=== PATIENT | female | born 1950 | race Caucasian/White ===

== ENCOUNTER → 2020-08-31 | Outpatient (CLI) | payer MEDICARE ==
--- NOTE | 2020-08-31 12:51 | XR ---
EXAMINATION TYPE: XR chest 2V DATE OF EXAM: 08/31/2020 COMPARISON: 05/04/2016 INDICATION: Short of breath TECHNIQUE: Frontal and lateral views of the chest are obtained. FINDINGS: The heart size is normal. The pulmonary vasculature is normal. The lungs are clear. Air-filled hiatal hernia is present. IMPRESSION: 1. No acute pulmonary process. 2. Large hiatal hernia
== END | disposition home or self-care (01) ==
LOC: RADXRMAIN 12:29
PROVIDERS: ATTEND Family Medicine
DX: K44.9 Diaphragmatic hernia without obstruction or gangrene (principal)
CPT/HCPCS: 71046

== ENCOUNTER 2020-12-09 16:19 | Emergency (ER) | payer MEDICARE ==
[2020-12-09] MEDS ORDERED: ACETAMINOPHEN TAB 500 MG TAB PO STA (16:48)
[2020-12-09] MEDS ORDERED: ONDANSETRON 4 MG/2 ML VIAL IVP STA (16:49)
[2020-12-09] MEDS ORDERED: SODIUM CHLORIDE 0.9% 1,000 ML IV STA (16:49)
[2020-12-09 17:08] LABS: Basophils % (A) 1 %; Eosinophils % (A) 0 %; HCT 40.4 % (34.0-46.0); HGB 13.9 gm/dL (11.4-16.0); Lymphocytes # (A) 0.6 k/uL (1.0-4.8); Lymphocytes % (A) 18 %; MCH 32.3 pg (25.0-35.0); MCHC 34.5 g/dL (31.0-37.0); MCV 93.7 fL (80.0-100.0); Mean Platelet Volume 7.8; Monocytes # (A) 0.2 k/uL (0-1.0); Monocytes % (A) 7 %; Neutrophils # (A) 2.5 k/uL (1.3-7.7); Neutrophils % (A) 72 %; Platelet Count 134 k/uL (150-450); RBC 4.31 m/uL (3.80-5.40); RDW 12.6 % (11.5-15.5); WBC 3.4 k/uL (3.8-10.6)
[2020-12-09 17:22] LABS: Albumin 4.4 g/dL (3.5-5.0); C Reactive Protein 20.1 mg/L (<10.0); Calcium 9.8 mg/dL (8.4-10.2); Magnesium 1.4 mg/dL (1.6-2.3); Potassium 3.9 mmol/L (3.5-5.1); Total Bilirubin 0.7 mg/dL (0.2-1.3)
[2020-12-09 17:28] LABS: INR 0.9 (<1.2); Partial Thromboplastin Time 25.3 sec (22.0-30.0); Prothrombin Time 10.1 sec (9.0-12.0)
--- NOTE | 2020-12-09 18:23 | XR ---
EXAMINATION TYPE: XR chest 1V portable DATE OF EXAM: 12/09/2020 COMPARISON: 08/31/2020. HISTORY: Fever and body aches. TECHNIQUE: Single frontal view of the chest is obtained. FINDINGS: There is mild interstitial edema with superimposed perihilar and bibasilar streaky opaciti es. No pleural effusion, or pneumothorax seen. Cardiomegaly and hiatal hernia noted. Stable median st ernotomy with fracture of upper most wire. The osseous structures are intact. IMPRESSION: Mild interstitial edema with concern for superimposed infiltrates.
--- NOTE | 2020-12-09 18:29 | ED ---
General Adult HPI - General Chief complaint: Fever Stated complaint: Sent by PCP - covid symptoms Time Seen by Provider: 12/09/20 16:44 Source: patient Mode of arrival: ambulatory Limitations: no limitations - History of Present Illness Initial comments: Patient is a 70-year-old female with history of heart disease, presenting to the emergency department with complaints of cough, body aches and intermittent fevers for the past 5 days. She states her and her symptoms started approximately the same time. Her is also being seen today in the ER for similar symptoms. She is also been having some diarrhea, low appetite. She has been trying to drink water. She is also been taking Tylenol for her fevers, she did take some early this morning but no recent Tylenol. She denies any abdominal pain, no chest pain. She does admit to some mild shortness of breath. Patient did not have her Covid vaccine yet. She has no further complaints at this time. Upon arrival to the ER, she is febrile to 101.7, 95% on room air, rest of vitals normal. - Related Data Home Medications Medication Instructions Recorded Confirmed Aspirin 162 mg PO HS 02/11/14 05/04/16 Clopidogrel [Plavix] 75 mg PO DAILY 02/11/14 05/04/16 Escitalopram [Lexapro] 10 mg PO DAILY 02/11/14 05/04/16 Sucralfate [Carafate] 1 gm PO TID 02/11/14 05/04/16 atenoloL [Tenormin] 25 mg PO DAILY 02/11/14 05/04/16 Nitroglycerin Sl Tabs [Nitrostat] 0.4 mg SUBLINGUAL Q5M PRN 09/02/15 05/04/16 Atorvastatin [Lipitor] 40 mg PO DAILY 05/04/16 05/04/16 Calcium Carbonate [Calcium] 600 mg PO DAILY 05/04/16 05/04/16 Isosorbide Mononitrate ER [Imdur] 30 mg PO DAILY 05/04/16 05/04/16 Previous Rx's Medication Instructions Recorded Chlorthalidone [Hygroton] 25 mg PO DAILY #0 05/05/16 lisinopriL [Zestril] 20 mg PO HS #0 05/05/16 Dexamethasone [Decadron] 6 mg PO DAILY 5 Days #5 tablet 12/09/20 Allergies Allergy/AdvReac Type Severity Reaction Status Date / Time meperidine HCl [From Demerol] Allergy Unknown Rash/Hives Verified 12/09/20 16:26 nickel Allergy Unknown Rash/Hives Verified 12/09/20 16:26 Review of Systems ROS Statement: Those systems with pertinent positive or pertinent negative responses have been documented in the HPI. ROS Other: All systems not noted in ROS Statement are negative. Past Medical History Past Medical History: Coronary Artery Disease (CAD), Cancer, Chest Pain / Angina, GERD/Reflux, Hyperlipidemia, Hypertension, Myocardial Infarction ([place]), Osteoarthritis (OA) Additional Past Medical History / Comment(s): 09-02-15 ADMITTED FOR C/O CHEST PAIN. CLINICAL IMPRESSION UNSTABLE ANGINA. OTHER PAST HX INCLUDES: HIATAL HERNIA,DIVERTICULITIS, HX OF BLEEDING ULCERS IN STOMACH,SKIN CANCER, STATED RECENTLY HAD A STRESS TEST IN AUGUST 2015, HEART CATH IN SEPTEMBER 2015 Last Myocardial Infarction Date:: 2009 History of Any Multi-Drug Resistant Organisms: None Reported Past Surgical History: Appendectomy, Coronary Bypass/CABG, Heart Catheterization, Heart Catheterization With Stent, Orthopedic Surgery, Tonsillectomy, Tubal Ligation Additional Past Surgical History / Comment(s): CABG(TRIPLE VESSEL IN 2009), CATARACTS REMOVED HAS LENS IMPLANTS, JAW SURGERY, RT ROTATOR CUFF, OVARIAN CYSTS, ANGIOPLASTY (07/2013)RT EYE RETINA SCAR TISSUE REMOVED, SKIN CANCER REMOVED, CYST REMOVED FROM THYROID, EGD/COLONOSCOPY Past Anesthesia/Blood Transfusion Reactions: No Reported Reaction, Family History of Problems w/ Anesthesia Additional Past Anesthesia/Blood Transfusion Reaction / Comment(s): SISTER-PONV, PER PAST HX, BLOOD TRANSFUSION-NO REACTION TO IT Date of Last Stent Placement:: 2012 Past Psychological History: Anxiety Smoking Status: Never smoker Past Alcohol Use History: None Reported Past Drug Use History: None Reported - Past Family History Son(s) Family Medical History: Myocardial Infarction ([place]) Additional Family Medical History / Comment(s): AT AGE 31 [place] Father Family Medical History: Myocardial Infarction ([place]) Additional Family Medical History / Comment(s): FROM A MASSIVE NE AGE 62 Mother Family Medical History: Cancer Additional Family Medical History / Comment(s): COLON/RECTAL CANCER AND VULVA CANCER General Exam - General Exam Comments Initial Comments: GENERAL: Patient is well-developed and well-nourished. Patient is nontoxic and in no acute distress. HEAD: Atraumatic, normocephalic. EYES: Pupils equal round and reactive to light, extraocular movements intact, sclera anicteric, conjunctiva are normal. Eyelids were unremarkable. ENT: TMs normal, nares patent, oropharynx clear without exudates. Moist mucous membranes. NECK: Normal range of motion, supple without lymphadenopathy or JVD. LUNGS: Unlabored respirations. Breath sounds clear to auscultation bilaterally and equal. No wheezes rales or rhonchi. HEART: Regular rate and rhythm without murmurs, rubs or gallops. ABDOMEN: Soft, nontender, normoactive bowel sounds. No guarding, no rebound. No masses appreciated. : Deferred MUSCULOSKELETAL: Normal extremities with adequate strength and normal range of motion, no pitting or edema. No clubbing or cyanosis. NEUROLOGICAL: Patient is alert and oriented x 3. Motor and sensory are also intact. Cranial nerves II through XII grossly intact. Symmetrical smile. Normal speech, normal gait. PSYCH: Normal mood, normal affect. SKIN: Warm, Dry, normal turgor, no rashes or lesions noted. Limitations: no limitations Course Vital Signs 12/09/20 12/09/20 12/09/20 16:26 19:02 20:07 Temperature 101.7 F H 98.4 F 98.6 F Pulse Rate 70 57 L 56 L Respiratory 16 16 18 Rate Blood Pressure 106/68 106/61 115/64 O2 Sat by Pulse 95 94 L 93 L Oximetry Medical Decision Making - Medical Decision Making Patient is a 70-year-old female with history of heart disease, presenting with cold-like symptoms for the last 5 days. She's been having some nausea, body aches, fatigue and some mild shortness of breath. Patient did arrive febrile to 101.7, 95% on room air. Her exam reveals no acute findings, she is in no acute distress. Rapid Covid test is positive. Patient's labs show a normal white count, sodium is slightly low at 130, lactic acid is normal, CRP is slightly elevated at 20. Chest x-ray shows mild interstitial edema with concern for superimposed infiltrates. Patient does meet qualifications for Covid antiviral therapy. Patient did receive infusion, no acute side effects. A she did receive fluids, Zofran and Tylenol. Her vital signs remained stable. She is stable for discharge. I will continue her on steroids. She is in agreement with this plan of care. Return parameters were discussed with her and she verbalized understanding. Case discussed with Dr. Rodriguez. - Lab Data Result diagrams: 12/09/20 16:52 12/09/20 16:52 Lab Results 12/09/20 12/09/20 12/09/20 Range/Units 16:52 16:52 16:52 WBC 3.4 L (3.8-10.6) k/uL RBC 4.31 (3.80-5.40) m/uL Hgb 13.9 (11.4-16.0) gm/dL Hct 40.4 (34.0-46.0) % MCV 93.7 (80.0-100.0) fL MCH 32.3 (25.0-35.0) pg MCHC 34.5 (31.0-37.0) g/dL RDW 12.6 (11.5-15.5) % Plt Count 134 L (150-450) k/uL MPV 7.8 Neutrophils % 72 % Lymphocytes % 18 % Monocytes % 7 % Eosinophils % 0 % Basophils % 1 % Neutrophils # 2.5 (1.3-7.7) k/uL Lymphocytes # 0.6 L (1.0-4.8) k/uL Monocytes # 0.2 (0-1.0) k/uL Eosinophils # 0.0 (0-0.7) k/uL Basophils # 0.0 (0-0.2) k/uL PT 10.1 (9.0-12.0) sec INR 0.9 (<1.2) APTT 25.3 (22.0-30.0) sec Sodium 130 L (137-145) mmol/L Potassium 3.9 (3.5-5.1) mmol/L Chloride 99 (98-107) mmol/L Carbon Dioxide 20 L (22-30) mmol/L Anion Gap 11 mmol/L BUN 14 (7-17) mg/dL Creatinine 0.98 (0.52-1.04) mg/dL Est GFR (CKD-EPI)AfAm 67 (>60 ml/min/1.73 sqM) Est GFR (CKD-EPI)NonAf 58 (>60 ml/min/1.73 sqM) Glucose 105 H (74-99) mg/dL Plasma Lactic Acid Minor (0.7-2.0) mmol/L Calcium 9.8 (8.4-10.2) mg/dL Magnesium 1.4 L (1.6-2.3) mg/dL Total Bilirubin 0.7 (0.2-1.3) mg/dL AST 35 (14-36) U/L ALT 16 (4-34) U/L Alkaline Phosphatase 50 (38-126) U/L Lactate Dehydrogenase 581 (313-618) U/L C-Reactive Protein 20.1 H (<10.0) mg/L Total Protein 7.0 (6.3-8.2) g/dL Albumin 4.4 (3.5-5.0) g/dL Coronavirus (PCR) (Not Detectd) 12/09/20 12/09/20 Range/Units 16:52 16:52 WBC (3.8-10.6) k/uL RBC (3.80-5.40) m/uL Hgb (11.4-16.0) gm/dL Hct (34.0-46.0) % MCV (80.0-100.0) fL MCH (25.0-35.0) pg MCHC (31.0-37.0) g/dL RDW (11.5-15.5) % Plt Count (150-450) k/uL MPV Neutrophils % % Lymphocytes % % Monocytes % % Eosinophils % % Basophils % % Neutrophils # (1.3-7.7) k/uL Lymphocytes # (1.0-4.8) k/uL Monocytes # (0-1.0) k/uL Eosinophils # (0-0.7) k/uL Basophils # (0-0.2) k/uL PT (9.0-12.0) sec INR (<1.2) APTT (22.0-30.0) sec Sodium (137-145) mmol/L Potassium (3.5-5.1) mmol/L Chloride (98-107) mmol/L Carbon Dioxide (22-30) mmol/L Anion Gap mmol/L BUN (7-17) mg/dL Creatinine (0.52-1.04) mg/dL Est GFR (CKD-EPI)AfAm (>60 ml/min/1.73 sqM) Est GFR (CKD-EPI)NonAf (>60 ml/min/1.73 sqM) Glucose (74-99) mg/dL Plasma Lactic Acid Minor 1.0 (0.7-2.0) mmol/L Calcium (8.4-10.2) mg/dL Magnesium (1.6-2.3) mg/dL Total Bilirubin (0.2-1.3) mg/dL AST (14-36) U/L ALT (4-34) U/L Alkaline Phosphatase (38-126) U/L Lactate Dehydrogenase (313-618) U/L C-Reactive Protein (<10.0) mg/L Total Protein (6.3-8.2) g/dL Albumin (3.5-5.0) g/dL Coronavirus (PCR) Detected A (Not Detectd) Disposition Clinical Impression: Pneumonia due to COVID-19 virus Disposition: HOME SELF-CARE Condition: Stable Instructions (If sedation given, give patient instructions): Coronavirus Disease 2019 (COVID-19) Additional Instructions: Please return to the Emergency Department if symptoms worsen or any other concerns. Continue to alternate between Tylenol and Motrin for fever control. Take steroids as prescribed starting tomorrow. Follow-up with your regular doctor. Prescriptions: Dexamethasone [Decadron] 6 mg PO DAILY 5 Days #5 tablet Is patient prescribed a controlled substance at d/c from ED?: No Referrals: Alexa Fernandez MD [Primary Care Provider] - 1-2 days
[2020-12-09] MEDS ORDERED: BAMLANIVIMAB (EUA) 700 MG, ETESEVIMAB (EUA) 1,400 MG in SODIUM CHLORIDE 0.9% 50 ML IVPB ONE (18:30)
[2020-12-09] MEDS ORDERED: DEXAMETHASONE SOD PHOSPHATE 10 MG/ML 1 ML VIAL IV STA (18:58)
[2020-12-09] MEDS ORDERED: SODIUM CHLORIDE 0.9% 50 ML IVPB ONE (19:00)
[2020-12-10 03:26] VITALS: BP 115/64; PULSE 56; RESP 18; TEMP 98.6
== END 2020-12-09 20:00 | disposition home or self-care (01) ==
LOC: EC 16:19
DX: U07.1 COVID-19 (principal); J12.82 Pneumonia due to coronavirus disease 2019; E78.5 Hyperlipidemia, unspecified; F41.9 Anxiety disorder, unspecified; I10 Essential (primary) hypertension; I25.10 Atherosclerotic heart disease of native coronary artery without angina pectoris; I25.2 Old myocardial infarction; K21.9 Gastro-esophageal reflux disease without esophagitis; M19.90 Unspecified osteoarthritis, unspecified site; Z79.82 Long term (current) use of aspirin; Z85.828 Personal history of other malignant neoplasm of skin
CPT/HCPCS: 36415; 80053; 83605; 83615; 83735; 85025; 85610; 85730; 86140; 87635; 71045; 99285; 96374; 96375; 96361; J1100; J2405; Q0245

== ENCOUNTER → 2021-03-31 | Outpatient (CLI) | payer MEDICARE ==
--- NOTE | 2021-03-31 16:50 | MR ---
EXAMINATION TYPE: MR knee RT wo con DATE OF EXAM: 03/31/2021 COMPARISON: Outside radiographs 03/22/2021 HISTORY: 70-year-old female M2 5.561, right knee pain, painful kneecap, and swelling for a few years. TECHNIQUE: Multiplanar, multisequence imaging of the right knee is performed without IV contrast. FINDINGS: The ACL and PCL are intact. There is mild thickening and intermediate signal within the proximal MCL suggesting remote or low-gra de sprain. LCL complex is intact. Medial meniscus is intact. Focal moderate thickness cartilage loss along the mid weightbearing aspect medial femoral condyle measuring 9 mm AP and 5 mm wide. Mild diffuse thinning of medial compartment articular cartilage volume with mild degenerative. Lateral meniscus is intact. Degenerative spurring of the lateral compartment with a no focal cartilag e defect. There is severe loss of articular cartilage along the mid aspect of both medial and lateral patellar facets. Additional severe irregular cartilage loss along the trochlear groove. Marginal spurring in t he patellofemoral compartment. Extensor mechanism is intact. Nonspecific mild anterior soft tissue swelling. There is a [id number] erate knee joint effusion. 1.0 x 1.4 cm loose body within the medial gutter of the suprapatellar pouc h. There is mild fluid along the pes anserinus bursa. No Fonseca's cyst. Normal pulmonary artery anatomy. Mild generalized muscle atrophy. No suspicious bone marrow replaceme nt. IMPRESSION: 1. Moderate overall patellofemoral compartmental osteoarthrosis with some areas of severe cartilage l oss along the mid patella and trochlear groove. Corresponding 14 x 10 mm loose body in the medial gut ter of the knee joint. 2. Focal moderate thickness cartilage defect along the mid weightbearing aspect of the medial femoral condyle measuring 9 x 5 mm. 3. Small to moderate joint effusion. Trace pes anserinus bursal effusion/bursitis.
== END | disposition home or self-care (01) ==
LOC: RADMRIMAIN 13:05
PROVIDERS: ATTEND Orthopaedic Surgery
DX: M17.11 Unilateral primary osteoarthritis, right knee (principal)

== ENCOUNTER 2021-05-19 07:49 | Day surgery (SDC) | payer MEDICARE ==
[2021-05-16 15:31] VITALS: BMI 29.2
--- NOTE | 2021-05-18 19:24 | HP ---
HISTORY AND PHYSICAL REASON FOR ADMISSION: Surgery 05/19/2021 HISTORY OF PRESENT ILLNESS: Christina Pemberton is a 71-year-old patient seen with progressive right knee pain. We discussed options. She elected to proceed with arthroscopy. Consent was obtained. Medical clearance was provided by Dr. Fernandez. PAST MEDICAL HISTORY: Hypertension, hyperlipidemia. PAST SURGICAL HISTORY: Tubal ligation and a tonsillectomy, rotator cuff surgery, coronary artery bypass surgery. MEDICATIONS: Atenolol, atorvastatin, aspirin, hydrochlorothiazide, isosorbide. ALLERGIES: DEMEROL AND NICKEL. SOCIAL HISTORY: She denies tobacco use. PHYSICAL EVALUATION OF THE RIGHT KNEE: Range of motion is 0-125. Mild effusion. Tenderness medial joint line. Tenderness lateral joint line. Positive medial Marley's. Ligaments stable. Hip rotation without pain. Distal neurovascular exam intact. RADIOGRAPHS: Radiographs of the right knee revealed osteoarthritic changes. MRI right knee revealed a loose body and cartilage defects as well as osteoarthritic changes. IMPRESSION: 1. Internal derangement of right knee with loose body and probable osteochondral tear. 2. Hypertension. 3. Hyperlipidemia. PLAN: Right knee arthroscopy with chondroplasty, removal of loose body and debridement. Surgery scheduled 05/19/2021. MMODL / IJN: [id number] /
[~2021-05-19 07:49] MED LIST: DEXAMETHASONE SOD PHOSPHATE 4 MG/ML 1 ML VIAL IV ONE; HYDROmorphone 0.5 MG/0.5 ML SYRINGE IVP PRN; LACTATED RINGERS 1,000 ML IV SCH; ONDANSETRON 4 MG/2 ML VIAL IVP ONE
[2021-05-19 08:41] LABS: Glucose,Whole Blood 92 mg/dL (75-99)
[2021-05-19] MEDS ORDERED: fentaNYL (PF) 50 MCG/ML 2 ML AMP ONE (09:20)
[2021-05-19] MEDS ORDERED: LIDOCAINE 1% INJ 10MG/ML (20 ML MDV) ONE (09:20)
[2021-05-19] MEDS ORDERED: SUCCINYLCHOLINE CHLORIDE 100 MG/5 ML SYR IV ONE (09:20)
[2021-05-19] MEDS ORDERED: KETOROLAC 15 MG/ML 1 ML VIAL ONE (09:20)
[2021-05-19] MEDS ORDERED: PROPOFOL 10 MG/ML 20 ML VIAL IV ONE (09:20)
[2021-05-19] MEDS ORDERED: MIDAZOLAM 2 MG/2 ML VIAL ONE (09:20)
[2021-05-19] MEDS ORDERED: BUPIVACAINE (PF) 0.25% 30 ML VIAL INTRAARTIC ONE (09:48)
--- NOTE | 2021-05-19 10:07 | P.OP ---
Date of Procedure: 05/19/21 Preoperative Diagnosis: Internal derangement right knee Postoperative Diagnosis: 1. Tear lateral meniscus right knee 2. 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 Reactive synovitis medial, lateral and suprapatellar compartments right knee Procedure(s) Performed: 1. Arthroscopic partial lateral meniscectomy right knee 2. Arthroscopic partial synovectomy medial, lateral and suprapatellar compartments right knee Anesthesia: DARLINA, local Surgeon: Graham Trevino Estimated Blood Loss (ml): 7 Pathology: none sent Condition: stable Disposition: PACU Indications for Procedure: 71-year-old patient seen with progressive right knee pain. After treatment opti ons were discussed, she elected to proceed with arthroscopy. Operative Findings: see description of procedure Description of Procedure: Patient was taken to the operative suite. Patient underwent a general anesthetic by the department of anesthesia. Patient was given preoperative antibiotics. The lower extremity was placed in a well-padded arthroscopic leg moran. The right leg was prepped and draped in the normal sterile orthopedic fashion. A lateral parapatellar and suprapatellar incision was made. Trochars were inserted. Arthroscopy was initiated. Suprapatellar pouch revealed diffuse thick reactive synovitis. The patellofemoral joint appeared to articulate congruently. There was grade 4 chondromalacia of both the patella and femoral sulcus with exposed bone on both sides([id number] arthritis). The scope was guided into the medial gutter. No loose bodies or plica were identified. The scope was then guided into the medial compartment. A medial parapatellar incision was made. Trocar inserted followed by probe. The medial meniscus was probed and found to be stable. There were grade 3 chondromalacia changes of the medial compartment with no osteochondral tears present. There was thick reactive synovitis anteriorly. I introduced a motorized shaver and performed a partial synovectomy. Shaver was removed. There was good decompression of the synovitis. Scope and probe were then guided into the intercondylar notch. Cruciates were identified, probed and found to be stable. The scope and probe were then guided into lateral compartment. There were radial tears in the posterior horn and midbody areas lateral meniscus. There were grade 1/2 chondromalacia changes lateral compartment with no tears. There was thick reactive synovitis anteriorly. I performed a partial lateral meniscectomy getting down to stable meniscal tissue. I performed a partial synovectomy decompressing the thick reactive synovitis. Shaver was removed. The residual meniscus was stable. There was good decompression of the synovitis. The scope was in guided back into the suprapatellar compartment. I introduced a motorized shaver into the suprapatellar compartment. I performed a partial synovectomy. Shaver was removed. There was good decompression of the synovitis. I now took one more look on the entire knee, no residual debris. Instruments were now removed from the joint. The joint was infiltrated with .25% Marcaine. Steri- Strips were applied to the portal sites. Sterile dressings were applied. The patient was placed into a TELLY hose. No tourniquet was utilized. The patient was awakened, transferred to a bed and taken to recovery stable satisfactory condition.
[2021-05-19 10:17] VITALS: TEMP 96.8
[2021-05-19 10:49] VITALS: RESP 18
[2021-05-19 11:21] VITALS: BP 124/78; PULSE 78
== END 2021-05-19 11:21 | disposition home or self-care (01) ==
LOC: OR 07:49
PROVIDERS: ATTEND Orthopaedic Surgery
DX: M23.200 Derangement of unspecified lateral meniscus due to old tear or injury, right knee (principal); M94.261 Chondromalacia, right knee; M65.861 Other synovitis and tenosynovitis, right lower leg; M23.41 Loose body in knee, right knee; M17.11 Unilateral primary osteoarthritis, right knee; I25.10 Atherosclerotic heart disease of native coronary artery without angina pectoris; I25.2 Old myocardial infarction; K21.9 Gastro-esophageal reflux disease without esophagitis; K44.9 Diaphragmatic hernia without obstruction or gangrene; E78.5 Hyperlipidemia, unspecified; I10 Essential (primary) hypertension; Z79.82 Long term (current) use of aspirin; Z79.899 Other long term (current) drug therapy; Z95.1 Presence of aortocoronary bypass graft; Z98.890 Other specified postprocedural states; Z79.02 Long term (current) use of antithrombotics/antiplatelets
CPT/HCPCS: 29881; 29876; J2250; J1100; J0690; J2405; J2001; J3010; J1885; J0330; J2704

== ENCOUNTER → 2021-08-09 | Outpatient (CLI) | payer MEDICARE ==
--- NOTE | 2021-08-10 08:07 | XR ---
EXAMINATION TYPE: XR thoracic spine 2V DATE OF EXAM: 08/09/2021 COMPARISON: None HISTORY: Fall, back pain TECHNIQUE: 3 views thoracic spine FINDINGS: There are 12 thoracic type vertebral bodies. The pedicles are intact. Disc heights are pres erved. Vertebral body heights are preserved. Alignment appears normal. Spondylosis within the thoraci c spine. Note is made of a large hiatal hernia. IMPRESSION: 1. Mild degenerative changes. 2. No suspicious acute thoracic abnormality. 3. Large hernia
--- NOTE | 2021-08-10 08:13 | XR ---
EXAMINATION TYPE: XR ribs LT DATE OF EXAM: 08/09/2021 COMPARISON: None HISTORY: Fall, rib pain TECHNIQUE: 2 view left RIBS FINDINGS: No pneumothorax is evident on these images. Note is made of a large hiatal hernia with air- fluid level. On the oblique views there are subtle anterior left rib fractures of the sixth fifth ribs. IMPRESSION: 1. Suspected anterior distal left fifth and sixth rib fractures.
--- NOTE | 2021-08-10 08:21 | XR ---
EXAMINATION TYPE: XR chest 2V DATE OF EXAM: 08/09/2021 COMPARISON: 08/09/2021 INDICATION: Fall pain TECHNIQUE: Single frontal view of the chest is obtained. FINDINGS: The heart size is normal. The pulmonary vasculature is normal. The lungs are clear. No pneumothorax is evident. Large hiatal hernia is present. Patient's known anterior left fifth and s ixth rib fractures are poorly visualized on this exam. IMPRESSION: 1. Large hiatal hernia. 2. No acute pulmonary process. 3. Patient's rib fractures not identified on this examination, see left rib exam same date.
== END | disposition home or self-care (01) ==
LOC: RADXRMAIN 16:58
PROVIDERS: ATTEND Family Medicine
DX: S29.9XXA Unspecified injury of thorax, initial encounter (principal); M47.814 Spondylosis without myelopathy or radiculopathy, thoracic region; W19.XXXA Unspecified fall, initial encounter
CPT/HCPCS: 71046; 72070

== ENCOUNTER → 2021-08-10 | Outpatient (CLI) | payer MEDICARE ==
[2021-08-10 10:59] LABS: HCT 40.1 % (37.2-46.3); HGB 12.7 g/dL (12.0-15.0); MCH 31.4 pg (27.0-32.0); MCHC 31.7 g/dL (32.0-37.0); MCV 99.3 fL (80.0-97.0); Platelet Count 225 X 10*3/uL (140-440); RBC 4.04 X 10*6/uL (4.10-5.20); RDW 12.1 % (11.5-14.5); WBC 3.85 X 10*3/uL (4.50-10.00)
[2021-08-10 13:09] LABS: Albumin 4.4 g/dL (3.8-4.9); Albumin/Globulin Ratio 2.15 (1.60-3.17); Anion Gap 12.1 mmol/L (10.00-18.00); BUN/Creat Ratio 25.44 Ratio (12.00-20.00); Blood Urea Nitrogen 21.8 mg/dL (9.0-27.0); Calcium 10.1 mg/dL (8.7-10.3); Globulin 2.1 g/dL (1.6-3.3); Non-African American GFR(CKD) 67.3 (60.0-200.0); Total Bilirubin 0.5 mg/dL (0.30-1.20); Total Protein 6.5 g/dL (6.2-8.2)
== END | disposition home or self-care (01) ==
LOC: LABWHC1 08:09
PROVIDERS: ATTEND Family Medicine
DX: R73.03 Prediabetes (principal); R06.02 Shortness of breath
CPT/HCPCS: 36415; 80053; 83036; 85027

== ENCOUNTER 2022-03-14 09:20 | Day surgery (SDC) | payer MEDICARE ==
[2022-03-09 15:53] VITALS: BMI 27.4
[~2022-03-14 09:20] MED LIST changes: -DEXAMETHASONE SOD PHOSPHATE 4 MG/ML 1 ML VIAL IV ONE; -HYDROmorphone 0.5 MG/0.5 ML SYRINGE IVP PRN; +LIDOCAINE 1% (10MG/ML) FOR IV START INTRADERMA PRN; -ONDANSETRON 4 MG/2 ML VIAL IVP ONE
[2022-03-14 09:56] VITALS: TEMP 97.2
[2022-03-14 10:07] LABS: Glucose,Whole Blood 105 mg/dL (70-110)
[2022-03-14] MEDS ORDERED: PROPOFOL 10 MG/ML 20 ML VIAL IV ONE (10:11)
--- NOTE | 2022-03-14 10:13 | P.GSHP ---
History of Present Illness H&P Date: 03/14/22 Chief Complaint: Colon cancer screening 71-year-old female here for colonoscopy. Last colonoscopy 8 years ago. Family history of colon cancer in her mother. No bowel complaints. Past Medical History Past Medical History: Cancer, Chest Pain / Angina, GERD/Reflux, Hyperlipidemia, Hypertension, Myocardial Infarction ([place]), Osteoarthritis (OA) Additional Past Medical History / Comment(s): Hiatal hernia, diverticulitis, hx bleeding ulcers in stomach, skin cancer. Last Myocardial Infarction Date:: 2009 History of Any Multi-Drug Resistant Organisms: None Reported Past Surgical History: Appendectomy, Coronary Bypass/CABG, Heart Catheterization, Orthopedic Surgery, Tonsillectomy, Tubal Ligation Additional Past Surgical History / Comment(s): CABG(TRIPLE VESSEL IN 2009), TERESA CATARACTS REMOVED/LENS IMPLANTS, JAW SURGERY, RT ROTATOR CUFF, SURGERY OVARIAN CYSTS, ANGIOPLASTY (07/2013), RT EYE RETINA SCAR TISSUE REMOVED, SKIN CANCER REMOVED, CYST REMOVED FROM THYROID, EGD/COLONOSCOPY, Past Anesthesia/Blood Transfusion Reactions: Family History of Problems w/ Anesthesia Additional Past Anesthesia/Blood Transfusion Reaction / Comment(s): SISTER - PONV., PT HAD ONE BLOOD TRANSFUSION, NO REACTION TO IT Date of Last Stent Placement:: 2012 Smoking Status: Never smoker - Past Family History Son(s) Family Medical History: Myocardial Infarction ([place]) Additional Family Medical History / Comment(s): AT AGE 31 [place] Sister(s) Family Medical History: Cancer Additional Family Medical History / Comment(s): brain cancer, Brother(s) Family Medical History: Cancer Additional Family Medical History / Comment(s): 1 with Pancreas cancer; 1 with lymphoma/brain cancer Father Family Medical History: Myocardial Infarction ([place]) Additional Family Medical History / Comment(s): FROM A MASSIVE DE AGE 62 Mother Family Medical History: Cancer, Deep Vein Thrombosis (DVT) Additional Family Medical History / Comment(s): COLON/RECTAL CANCER AND VULVA CANCER Medications and Allergies Home Medications Medication Instructions Recorded Confirmed Type Aspirin 162 mg PO DAILY 02/11/14 03/09/22 History Clopidogrel [Plavix] 75 mg PO DAILY 02/11/14 03/09/22 History Escitalopram [Lexapro] 10 mg PO DAILY 02/11/14 03/09/22 History Sucralfate [Carafate] 1 gm PO TID 02/11/14 03/09/22 History Nitroglycerin Sl Tabs [Nitrostat] 0.4 mg SUBLINGUAL Q5M PRN 09/02/15 03/09/22 History Atorvastatin [Lipitor] 40 mg PO HS 05/04/16 03/09/22 History Isosorbide Mononitrate ER [Imdur] 30 mg PO DAILY 05/04/16 03/09/22 History Fish Oil/Dha/Epa [Fish Oil 1,200 1 each PO DAILY 05/16/21 03/09/22 History mg Fish Oil] lisinopriL [Zestril] 20 mg PO DAILY 05/16/21 03/09/22 History Calcium Carbonate [Calcium] 1,200 mg PO DAILY 03/09/22 03/09/22 History atenoloL [Tenormin] 12.5 mg PO HS 03/09/22 03/09/22 History hydroCHLOROthiazide [Hydrodiuril] 25 mg PO DAILY 03/09/22 03/09/22 History Allergies Allergy/AdvReac Type Severity Reaction Status Date / Time meperidine HCl [From Demerol] Allergy Unknown Rash/Hives Verified 03/14/22 09:49 nickel Allergy Unknown Rash/Hives Verified 03/14/22 09:49 Surgical - Exam Vital Signs Temp Pulse Resp BP Pulse Ox 97.2 F L 78 16 150/74 95 03/14/22 09:55 03/14/22 09:55 03/14/22 09:55 03/14/22 09:55 03/14/22 09:55 Physical exam: General: Well-developed, well-nourished HEENT: Normocephalic, sclerae nonicteric Abdomen: Nontender, nondistended Extremities: No edema Neuro: Alert and oriented Assessment and Plan (1) Colon cancer screening Narrative/Plan: Will proceed with colonoscopy at this time Current Visit: No Status: Acute Code(s): Z12.11 - ENCOUNTER FOR SCREENING FOR MALIGNANT NEOPLASM OF COLON SNOMED Code(s): 838174910
--- NOTE | 2022-03-14 10:29 | P.PCN ---
Date of Procedure: 03/14/22 Procedure(s) Performed: PREOPERATIVE DIAGNOSIS: Colon cancer screening, family history of colon cancer POSTOPERATIVE DIAGNOSIS: Poor prep, diverticulosis PROCEDURE: Colonoscopy ANESTHESIA: MAC SURGEON: Saman Burr M.D. SPECIMENS: None ENDOSCOPIC PROCEDURE: The patient was placed on the endoscopy table in the left decubitus position. The Olympus colonoscope was inserted into the anus and passed under direct visualization to the base of the cecum. The appendiceal orifice was visualized. From that point the scope was slowly withdrawn inspecting all surfaces carefully. There were no neoplastic inflammatory or polypoid lesions throughout the cecum, ascending, transverse, descending, sigmoid and rectum. There was mild left-sided diverticulosis noted. The patient's prep was poor and the mucosal surfaces were not well visualized. Digital rectal examination was normal. The patient was taken to the recovery room in stable condition per anesthesia guidelines. RECOMMENDATIONS: We'll discuss endoscopic findings with the patient. Smaller polyps could have been missed. Recommend repeat colonoscopy 3-5 years given the patient's poor prep. Patient should perform 2 day bowel prep at that time.
[2022-03-14 10:52] VITALS: BP 101/63; PULSE 65; RESP 18
== END 2022-03-14 11:22 ==
LOC: ORWHC2ENDO 09:20
PROVIDERS: ATTEND Surgery
DX: Z12.11 Encounter for screening for malignant neoplasm of colon (principal); Z80.0 Family history of malignant neoplasm of digestive organs; K21.9 Gastro-esophageal reflux disease without esophagitis; E78.5 Hyperlipidemia, unspecified; I10 Essential (primary) hypertension; M19.90 Unspecified osteoarthritis, unspecified site; I25.2 Old myocardial infarction; I25.119 Atherosclerotic heart disease of native coronary artery with unspecified angina pectoris; Z87.19 Personal history of other diseases of the digestive system; Z85.828 Personal history of other malignant neoplasm of skin; Z90.49 Acquired absence of other specified parts of digestive tract; Z95.1 Presence of aortocoronary bypass graft; Z80.7 Family history of other malignant neoplasms of lymphoid, hematopoietic and related tissues; Z80.8 Family history of malignant neoplasm of other organs or systems; Z80.49 Family history of malignant neoplasm of other genital organs; Z82.49 Family history of ischemic heart disease and other diseases of the circulatory system; Z79.82 Long term (current) use of aspirin; Z79.01 Long term (current) use of anticoagulants; Z79.899 Other long term (current) drug therapy; Z88.5 Allergy status to narcotic agent; Z91.09 Other allergy status, other than to drugs and biological substances
CPT/HCPCS: J2704; G0105

== ENCOUNTER 2022-05-15 12:53 | Day surgery (SDC) | payer MEDICARE ==
[2022-05-12 09:04] VITALS: BMI 28.9
--- NOTE | 2022-05-14 22:15 | HP ---
HISTORY AND PHYSICAL DATE OF SURGERY: 05/15/2022 HISTORY OF PRESENT ILLNESS: Christina Pemberton is a 72-year-old patient seen with progressive right knee pain. We discussed options for treatment. She elected to proceed with a right total knee arthroplasty. Consent regarding the procedure was obtained. Medical and cardiac clearances were obtained. PAST MEDICAL HISTORY: Hypertension. PAST SURGICAL HISTORY: Rotator cuff repair, coronary artery bypass surgery, tonsillectomy, tubal ligation. DAILY MEDICATIONS: 1. Atenolol. 2. Hydrochlorothiazide. 3. Isosorbide. 4. Lisinopril. ALLERGIES: Demerol. SOCIAL HISTORY: She denies tobacco use. PHYSICAL EVALUATION OF THE RIGHT KNEE: Her range of motion is 0 to 130. Mild effusion. Tenderness, medial joint line. Crepitus, medial patellofemoral compartments with range of motion. Pain with patellofemoral compression. Ligaments stable. Hip rotation without pain. Distal neurovascular exam is intact. Radiographs of the right knee reveal severe osteoarthritic changes. IMPRESSION: 1. Right knee osteoarthritis. 2. Nickel allergy. 3. Hypertension. 4. Hyperlipidemia. PLAN: Right total knee arthroplasty. MMODL / IJN: [id number] /
[~2022-05-15 12:53] MED LIST changes: +ACETAMINOPHEN TAB 500 MG TAB PO PRN; +DEXAMETHASONE SOD PHOSPHATE 4 MG/ML 1 ML VIAL IV ONE; +HYDROmorphone 0.5 MG/0.5 ML SYRINGE IVP PRN; -LIDOCAINE 1% (10MG/ML) FOR IV START INTRADERMA PRN; +MELOXICAM 7.5 MG TAB PO PRN; +ONDANSETRON 4 MG/2 ML VIAL IVP ONE; +TRANEXAMIC ACID IN NACL,ISO-OS 1,000 MG in SALINE 1 100ML.BAG IVPB PRN
[2022-05-15] MEDS ORDERED: LIDOCAINE 1% (10MG/ML) FOR IV START INTRADERMA ONE (13:36)
[2022-05-15] MEDS ORDERED: MIDAZOLAM 2 MG/2 ML VIAL IV ONE (13:39)
[2022-05-15 13:56] LABS: Glucose,Whole Blood 102 mg/dL (70-110)
--- NOTE | 2022-05-15 14:04 | P.ANPRN ---
Procedure Note - Anesthesia - Nerve Block Performed Right Adductor Canal Infusion Time Out Performed: Yes (1339) Date of Procedure: 05/15/22 Procedure Start Time: 13:39 Procedure Stop Time: 13:49 Location of Patient: PreOp Indication: Acute Post-Operative Pain, Dx/Pain Location (Right knee), Requested by Surgeon Specifically requested for management of pain by DrFabi: Graham Trevino Sedation Type: Sedate with meaningful contact maintained Preparation: Sterile Prep, Sterile Dressing Position: Supine Catheter: Indwelling Needle Types: Pajunk Needle Gauge: 18 Ultrasound used to visualize needle placement: Yes Ultrasound used to observe medication spread: Yes Injectate: 0.5% Ropivacaine (see comment for volume) (15 cc) Blood Aspirated: Yes Pain Paresthesia on Injection Noted: Yes Resistance on Injection: Normal Image Stored and Saved: Yes Events: Uneventful and Well Tolerated Right iPack Single Time Out Performed: Yes Date of Procedure: 05/15/22 Location of Patient: PreOp Indication: Acute Post-Operative Pain, Dx/Pain Location (Right knee), Requested by Surgeon Specifically requested for management of pain by DrFabi: Graham Trevino Sedation Type: Sedate with meaningful contact maintained Preparation: Sterile Prep Position: Left Lateral Catheter: None Needle Types: Pajunk Needle Gauge: 21 Ultrasound used to visualize needle placement: Yes Ultrasound used to observe medication spread: Yes Injectate: 0.5% Ropivacaine (see comment for volume) (15 cc) Blood Aspirated: No Pain Paresthesia on Injection Noted: No Resistance on Injection: Normal Image Stored and Saved: Yes Events: Uneventful and Well Tolerated
[2022-05-15] MEDS ORDERED: ROPIVACAINE 0.2%-NS ON-Q PUMP 1,090 MG, EMPTY PAIN BALL 1 EACH MISCELLANE PRN (14:09)
[2022-05-15] MEDS ORDERED: LACTATED RINGERS 1,000 ML IV ONE (15:44)
[2022-05-15] MEDS ORDERED: ceFAZolin 1,000 MG in SODIUM CHLORIDE 0.9% 1,000 ML IRRIGATION ONE (16:14)
[2022-05-15] MEDS ORDERED: HYDROcodone/APAP 5-325MG 1 EACH TAB PO PRN (17:07)
[2022-05-15] MEDS ORDERED: NALOXONE 0.4 MG/ML 1 ML VIAL IV PRN (17:07)
[2022-05-15] MEDS ORDERED: HYDROmorphone 0.5 MG/0.5 ML SYRINGE IVP PRN ×3 (17:07)
[2022-05-15] MEDS ORDERED: ONDANSETRON 4 MG/2 ML VIAL IVP PRN (17:07)
--- NOTE | 2022-05-15 17:07 | P.OP ---
Date of Procedure: 05/15/22 Preoperative Diagnosis: Right knee osteoarthritis Postoperative Diagnosis: Right knee osteoarthritis Procedure(s) Performed: Right total knee arthroplasty Implants: 1. Aesculap size 4 narrow right cruciate cemented femur 2. Aesculap size T2 cemented tibial baseplate 3. Aesculap polyethylene tibial insert size 2+ 14 mm 4. Aesculap size P2 all polyethylene cemented patella Anesthesia: regional (Adductor canal catheter, Ipack block), spinal Surgeon: Graham Trevino Cafeteria Associate #1: Zach Nice Estimated Blood Loss (ml): 50 Pathology: other (Bone) Condition: stable Disposition: PACU Indications for Procedure: 72-year-old patient seen with symptomatic right knee osteoarthritis. After having treatment options discussed, she elected to proceed with total knee arthroplasty. Operative Findings: See description of procedure Description of Procedure: Patient was taken to the operative suite after having an adductor canal catheter placed by the department of anesthesia as well as an Ipack block for postoperative pain management. Patient underwent a spinal anesthetic by the department of anesthesia. Patient was given preoperative IV intake antibiotics and TXA. A well-padded tourniquet was placed about the right lower extremity. The lower extremity was then prepped and draped in the normal sterile orthopedic fashion. The extremity was elevated, a tourniquet was insufflated to 300. A standard anterior incision was made sharply through skin. Dissection was taken down through the subcutaneous soft tissues down to the extensor mechanism. A medial arthrotomy was performed, patella was everted and knee was flexed. There was advanced osteoarthritis noted. I introduced my distal intramedullary femoral drill. I then introduced the distal femoral cutting jig. Stefan MARCELO secured the cutting jig with 2 pins. I held retractors in position while Stefan MARCELO performed the distal femoral resection through the guide area we now removed her distal femoral cutting guide. We now placed our 4-in-1 femoral cutting block and positioned and it was secured with 2 pins by Stefan MARCELO while I held the block in position. The distal femoral finishing was now completed. A proximal tibial cutting guide was positioned. I held the guide in the appropriate position with both hands well Stefan MARCELO inserted stabilizing pins into the guide. Proximal tibial cut was made. We now placed a trial femoral component into position, along with an appropriate size tibial tray and insert. We now took the knee through range of motion and had full ex tension good flexion and good overall soft tissue balance noted. The patella was everted and stabilized with 2 towel clips held by Stefan MARCELO while I performed a flush with patellar quad tendon utilizing a fresh sawblade. We templated the patella, appropriate drill holes were made. An appropriate trial patella was positioned, knee was taken through full range of motion with the patella tracking very nicely. The trial patella was removed. Drill holes were made through the femoral component. All trial components were removed after marking off the appropriate rotation of the tibia. Retractors were now positioned along the proximal tibia. An appropriate keel punch was made with the appropriate size tibial guide by myself on Stefan MARCELO assisted by holding retractors. At this point appropriate size implants were chosen and opened. The joint was irrigated copiously with pulse lavage mechanical irrigation. The posterior capsule was infiltrated with local analgesic. The wound was irrigated with pulse lavage mechanical irrigation. We mixed antibiotic methylmethacrylate. We placed the knee into flexion. We placed multiple retractors assisted by Stefan MARCELO to expose the proximal tibia. Once the methyl methacrylate was ready, the tibial component was cemented into place removing any excess methylmethacrylate form by both myself and Stefan MARCELO. The femoral component was cemented into place removing the removing any excess methylmethacrylate performed by both myself and Stefan MARCELO. We then inserted the appropriate size polyethylene tibial insert. We made sure that it was locked into position. We took the knee into full extension, and then back in a flexion making sure we had removed any excess methylmethacrylate. The patellar component was then cemented down and secured with clamp. Excess methylmethacrylate removed. We kept the knee in full extension, patellar clamp in position until methylmethacrylate had hardened. Once it had hardened the patellar clamp was removed. The knee was taken through full range of motion. The patella tracked nicely. There was good soft tissue balancing. The tourniquet was now released. Additional hemostasis was achieved via electrocautery. A second gram of TXA was given. The wound again was irrigated with pulse lavage mechanical irrigation. The superficial soft tissues were infiltrated local analgesic. The extensor mechanism was repaired with Ethibond suture. We checked the repair with range of motion and it was stable. The subcutaneous soft tissues were repaired with Vicryl in layers. The skin was approximated with pernio/Dermabond. Sterile dressings were applied followed by loose web roll and [place] bandage. The patient was transferred to a bed, and taken to recovery in stable and satisfactory condition. Stefan MARCELO assisted with this complex procedure.
[2022-05-15] MEDS ORDERED: SODIUM CHLORIDE 0.9% 1,000 ML IV SCH (17:15)
--- NOTE | 2022-05-15 17:58 | XR ---
EXAMINATION TYPE: XR knee limited RT DATE OF EXAM: 05/15/2022 COMPARISON: NONE HISTORY: Postop TECHNIQUE: 2 views FINDINGS: There is right knee prosthesis. Components are anatomically positioned. IMPRESSION: No complicating process seen.
[2022-05-15] MEDS ORDERED: SENNOSIDES-DOCUSATE SODIUM 1 EACH TAB PO SCH (21:00)
--- NOTE | 2022-05-15 23:32 | P.CONS ---
History of Present Illness - Reason for Consult Consult date: 05/15/22 - History of Present Illness The patient is a 72-year-old female with a PMH of hypertension, hyperlipidemia, coronary artery disease who was admitted for an elective right knee replacement. The patient underwent the procedure earlier today with no immediate postoperative consultations noted. She was seen postsurgically on the [facility] unit. She reported excellent control of her pain at the time of interview, rated at a 1 out of 10 at the right knee. She denied any additional complaints. She denied experiencing chest discomfort, shortness of breath, fever, chills, cough, nausea, vomiting, abdominal pain, diarrhea. Reports compliance with all her medications at home. Review of systems: Pertinent positives and negatives as discussed in HPI, a complete review of systems was performed and all other systems are negative. Physical examination: General: non toxic, no distress, appears at stated age, obese Derm: no unusual rashes/lesions, warm Head: atraumatic, normocephalic, symmetric Eyes: EOMI, no lid lag, anicteric sclera, pupils equal round reactive to light ENT: Nose and ears atraumatic Neck: No cervical lymphadenopathy, trachea midline, supple Mouth: no lip lesion, mucus membranes moist Cardiovascular: S1S2 reg, no murmur, positive dorsalis pedis pulse bilateral, no edema Lungs: CTA bilateral, no rhonchi, no rales, no accessory muscle use Abdominal: soft, nontender to palpation, no guarding Ext: muscle strength 5 out of 5 in all extremities grossly except right lower extremity due to pain, right knee [place] bandage in place, no gross muscle atrophy, no contractures, Neuro: CN II-XI grossly intact, no gross focal neuro deficits Psych: Alert, oriented, appropriate affect Assessment/plan Chronic conditions: HTN, HLD, CAD -C/w home meds S/p R knee total replacement -Defer management including pain control and DVT prophylaxis to the primary surgery service Past Medical History Past Medical History: Coronary Artery Disease (CAD), Cancer, Chest Pain / Angina, Heart Failure, GERD/Reflux, Hyperlipidemia, Hypertension, Myocardial Infarction (VT), Osteoarthritis (OA) Additional Past Medical History / Comment(s): fell last week has bruising under rt eye and rt knee,hx borderline diabetes,Hiatal hernia, diverticulitis, hx bleeding ulcers in stomach, skin cancer Last Myocardial Infarction Date:: 2009 History of Any Multi-Drug Resistant Organisms: None Reported Past Surgical History: Appendectomy, Coronary Bypass/CABG, Heart Catheterization, Heart Catheterization With Stent, Orthopedic Surgery, Tonsillectomy, Tubal Ligation Additional Past Surgical History / Comment(s): CABG(TRIPLE VESSEL IN 2009), CATARACTS REMOVED/LENS IMPLANTS, JAW SURGERY-no problems oping and closing mouth), RT ROTATOR CUFF, OVARIAN CYSTS, ANGIOPLASTY (07/2013) RT EYE RETINA SCAR TISSUE REMOVED, SKIN CANCER REMOVED, CYST REMOVED FROM THYROID, EGD/COLONOSCOPY Past Anesthesia/Blood Transfusion Reactions: No Reported Reaction, Family History of Problems w/ Anesthesia Additional Past Anesthesia/Blood Transfusion Reaction / Comm: Has had generalized muscle cramps post anesthesia in past,SISTER - PONV. BLOOD TRANSFUSION, NO REACTION TO IT Date of Last Stent Placement:: 2012 Past Psychological History: Anxiety Smoking Status: Never smoker Past Alcohol Use History: Rare Past Drug Use History: None Reported - Past Family History Son(s) Family Medical History: Myocardial Infarction (VT) Additional Family Medical History / Comment(s): AT AGE 31 VT Sister(s) Family Medical History: Cancer Additional Family Medical History / Comment(s): brain cancer, Brother(s) Family Medical History: Cancer Additional Family Medical History / Comment(s): 1 with Pancreas cancer; 1 with lymphoma/brain cancer Father Family Medical History: Myocardial Infarction (VT) Additional Family Medical History / Comment(s): FROM A MASSIVE VT AGE 62 Mother Family Medical History: Cancer, Deep Vein Thrombosis (DVT) Additional Family Medical History / Comment(s): COLON/RECTAL CANCER AND VULVA CANCER Medications and Allergies Home Medications Medication Instructions Recorded Confirmed Type Aspirin 162 mg PO DAILY 02/11/14 05/12/22 History Clopidogrel [Plavix] 75 mg PO DAILY 02/11/14 05/12/22 History Escitalopram [Lexapro] 10 mg PO QAM 02/11/14 05/12/22 History Sucralfate [Carafate] 1 gm PO TID 02/11/14 05/12/22 History Nitroglycerin Sl Tabs [Nitrostat] 0.4 mg SUBLINGUAL Q5M PRN 09/02/15 05/12/22 History Atorvastatin [Lipitor] 40 mg PO HS 05/04/16 05/12/22 History Isosorbide Mononitrate ER [Imdur] 30 mg PO QAM 05/04/16 05/12/22 History lisinopriL [Zestril] 20 mg PO QAM 05/16/21 05/12/22 History Calcium Carbonate [Calcium] 600 mg PO BID 03/09/22 05/12/22 History atenoloL [Tenormin] 12.5 mg PO HS 03/09/22 05/12/22 History hydroCHLOROthiazide [Hydrodiuril] 25 mg PO QAM 03/09/22 05/12/22 History Allergies Allergy/AdvReac Type Severity Reaction Status Date / Time meperidine HCl [From Demerol] Allergy Unknown Rash/Hives Verified 05/12/22 08:38 nickel Allergy Unknown Rash/Hives Verified 05/12/22 08:38 Physical Exam Vitals: Vital Signs Temp Pulse Pulse Pulse Resp BP BP 05/15/22 19:11 62 138/78 05/15/22 18:56 65 123/75 05/15/22 18:41 58 L 137/81 05/15/22 18:26 67 146/80 05/15/22 18:14 97.5 F L 52 L 20 126/67 05/15/22 18:11 57 L 126/67 05/15/22 17:51 54 L 16 121/63 05/15/22 17:36 49 L 16 120/66 05/15/22 17:21 97.0 F L 62 16 123/67 05/15/22 14:02 50 L 16 136/71 05/15/22 13:25 97.9 F 55 L 20 159/72 Pulse Ox 05/15/22 19:11 98 05/15/22 18:56 96 05/15/22 18:41 98 05/15/22 18:26 97 05/15/22 18:14 95 05/15/22 18:11 94 L 05/15/22 17:51 98 05/15/22 17:36 96 05/15/22 17:21 92 L 05/15/22 14:02 96 05/15/22 13:25 97 Intake and Output 05/15/22 05/15/22 05/15/22 06:59 14:59 22:59 Intake Total 600 901 Output Total 50 Balance 600 851 Intake: IV 600 901 Output: Estimated Blood Loss 50 Other: Weight 73.5 kg 73.5 kg
[2022-05-16 03:11] VITALS: RESP 16
[2022-05-16] MEDS: HYDROcodone/APAP 5-325MG 1 EACH TAB PO PRN ×2 (06:15→13:08)
--- NOTE | 2022-05-16 07:28 | P.PN ---
Progress Note - Text Progress Note Date: 05/16/22 POD 1 from TKR. ACC in place, ropivacaine running at 8cc. pain controlled. no lower ext weakness. pain 4/10 mostly posterior and laterally. continue for 3 days post op per instructions.
[2022-05-16] MEDS ORDERED: CALCIUM CARBONATE 500 MG CHEWABLE PO SCH (09:00)
[2022-05-16] MEDS ORDERED: ESCITALOPRAM 10 MG TAB PO SCH (09:00)
[2022-05-16] MEDS ORDERED: SUCRALFATE 1 GM TAB PO SCH (09:00)
[2022-05-16] MEDS ORDERED: lisinopriL 20 MG TAB PO SCH (09:00)
[2022-05-16] MEDS ORDERED: CLOPIDOGREL 75 MG TAB PO SCH (09:00)
[2022-05-16] MEDS ORDERED: hydroCHLOROthiazide 25 MG TAB PO SCH (09:00)
[2022-05-16] MEDS ORDERED: ASPIRIN 81 MG PO SCH (09:00)
[2022-05-16] MEDS ORDERED: ISOSORBIDE MONONITRATE ER 30 MG TAB.ER.24H PO SCH (09:00)
[2022-05-16] MEDS ORDERED: MELOXICAM 7.5 MG TAB PO SCH (09:00)
[2022-05-16] MEDS ORDERED: ENOXAPARIN 40 MG/0.4 ML SYRINGE SQ SCH (09:00)
[2022-05-16 10:37] LABS: Basophils # (A) 0.01 X 10*3/uL (0.00-0.10); Basophils % (A) 0.1 %; Eosinophils # (A) 0 X 10*3/uL (0.04-0.35); Eosinophils % (A) 0 %; HCT 32.4 % (37.2-46.3); HGB 10.6 g/dL (12.0-15.0); Immature Grans, Automated 0.3 %; Lymphocytes # (A) 0.69 X 10*3/uL (0.90-5.00); Lymphocytes % (A) 6.8 %; MCH 32.3 pg (27.0-32.0); MCHC 32.7 g/dL (32.0-37.0); MCV 98.8 fL (80.0-97.0); Mean Platelet Volume 11.2 fL (9.5-12.2); Monocytes # (A) 1.11 X 10*3/uL (0.20-1.00); NRBC Per 100 WBC 0 /100 WBCS (0.0-0.0); Neutrophils # (A) 8.26 X 10*3/uL (1.80-7.70); Neutrophils % (A) 81.8 %; Platelet Count 159 X 10*3/uL (140-440); RBC 3.28 X 10*6/uL (4.10-5.20); RDW 11.9 % (11.5-14.5)
[2022-05-16] MEDS ORDERED: MULTIVITAMINS, THERA 1 EACH TAB PO SCH (12:00)
--- NOTE | 2022-05-16 12:17 | P.PN ---
Subjective Progress Note Date: 05/16/22 Principal diagnosis: Status post right total knee arthroplasty Patient is evaluated today at bedside, she is resting comfortably in her hospital bed, she does have family present at bedside. They're well with physical therapy, she did utilize the walker with minimal difficulty. She states that she does have some generalized discomfort in her knee, she feels that it is controlled with current pain medication. She denies any headaches, lightheadedness, chest pain or shortness of breath. Objective - Vital Signs Vital signs: Vital Signs Temp 97.6 F 05/16/22 02:00 Pulse 56 L 05/16/22 02:00 Resp 16 05/16/22 02:00 BP 112/64 05/16/22 02:00 Pulse Ox 92 L 05/16/22 02:00 FiO2 Intake & Output 05/15/22 05/16/22 05/16/22 18:59 06:59 18:59 Intake Total 1501 Output Total 50 Balance 1451 Weight 73.5 kg 73.5 kg Intake: IV 1501 Output: Estimated Blood Loss 50 Other: Voiding Method Toilet # Voids 2 - Exam Right lower extremity: Incision is clean, dry, and intact. The foam dressing is in good condition. There is minimal soft tissue swelling and ecchymosis surrounding the medial and lateral aspects of the incision. Calf is soft, no tenderness with palpation. Plantar flexion, dorsiflexion, EHL, FHL are intact. Sensory exam to light touch throughout the extremity is intact, dorsal pedis pulses 2+. - Labs CBC & Chem 7: 05/16/22 07:07 Labs: Abnormal Lab Results - Last 24 Hours (Table) 05/16/22 Range/Units 07:07 WBC 10.10 H (4.50-10.00) X 10*3/uL RBC 3.28 L (4.10-5.20) X 10*6/uL Hgb 10.6 L (12.0-15.0) g/dL Hct 32.4 L (37.2-46.3) % MCV 98.8 H (80.0-97.0) fL MCH 32.3 H (27.0-32.0) pg Neutrophils # 8.26 H (1.80-7.70) X 10*3/uL Lymphocytes # 0.69 L (0.90-5.00) X 10*3/uL Monocytes # 1.11 H (0.20-1.00) X 10*3/uL Eosinophils # 0 L (0.04-0.35) X 10*3/uL Assessment and Plan Assessment: Postoperative day #1 status post right total knee arthroplasty Plan: Pain control, plan for discharge home on [place] 5 mg/325 mg DVT prophylaxis, aspirin and Plavix after discharge Wound care instructions were discussed with patient, this including showering instructions, removal of pain catheter, removal of dressing and a single Home physical therapy/nursing after discharge Medical recommendations Discharge planning: Patient is discharged home today Time with Patient: Less than 30
--- NOTE | 2022-05-16 12:19 | P.DS ---
Providers Date of admission: 05/15/2022 Expected date of discharge: 05/16/22 Attending physician: Graham Trevino Consults: 05/15/22 17:07 Consult Physician Routine Consulting Provider: Raquel Lane Consult Reason/Comments: Medical management Do you want consulting provider notified?: Yes Primary care physician: [facility] Course: Date of admission: 05/15/2022 Date of discharge: 05/16/2022 Admission diagnosis: Status post right total knee arthroplasty Discharge diagnosis: Same Attending physician: Dr. Trevino Surgical procedures: Right total knee arthroplasty Brief history: Patient is a 72-year-old female with a history of progressive primary right knee osteoarthritis. At this point patient has failed conservative treatment measures and has opted to proceed with a elective right total knee arthroplasty. Hospital course: Details of patient's surgery can be found in operative report. Patient tolerated the procedure well and was subsequently transported to orthopedic floor. Patient's orthopeidc and medical care was provided daily. Patient had daily laboratory tests performed for evaluation of overall blood counts. Patient had daily physical therapy to include strengthening range of motion as well as education with walker ambulation. Patient was treated with Plavix and aspirin for their postoperative DVT prophylaxis during their inpatient stay. Patient was noted to have a relatively uneventful postoperative course. Patient reported satisfactory pain control with oral pain medications by postoperative day 0. Patient showed satisfactory progress with physical therapy. Patient moved steadily through the program and had no difficulty meeting the goals by postoperative day 1. Given patient's otherwise satisfacto ry course and having met physical therapy goals, plan is to discharge patient home on postoperative day 1. Discharge condition/disposition: Patient will be discharged home in stable condition. Discharge medications: Instructions are given on resumption of patient's normal daily medications per primary care recommendation, in addition patient will be prescribed Lancaster 5 mg/325 mg, senna S. Discharge instructions: 1. Wound care and infection precautions, keep incision dry and covered while showering, no lotions, creams, moisturizers. No soaking, tubs, pools, hottubs. Do not scrub over the incision. 2. Weight-bear as tolerated with walker / cane until follow-up. 3. Ice and elevate when necessary. Do not exceed 20 minutes per hour with ice pack. 4. Utilize compression sleeve until seen at first follow up appointment. 5. Visiting nursing care. 6. Home physical therapy including home CPM. 7. Pain meds and anticoagulants per prescription. 8. Pain medication has potential to cause constipation. Increase oral fluid and fiber intake. Contact primary care provider if you have not had a bowel movement within 48 hours after discharge 9. No anti-inflammatory medication until discussed at first post operative visit, this including Motrin, Aleve, Mobic, Diclofenac. 10. Follow up in office at 2 weeks postop with Stefan Nice PA-C/Eric Falcon 11. Follow up with your primary care doctor 7-10 days after discharge. 12. Contact [facility] with any questions, . Procedures: Right total knee arthroplasty Patient Condition at Discharge: Good Plan - Discharge Summary Discharge Rx Participant: Yes New Discharge Prescriptions: New HYDROcodone/APAP 5-325MG [Lancaster 5-325] 1 - 2 tab PO Q6HR PRN #56 tab PRN Reason: Pain Sennosides/Docusate Sodium [Senna-S 8.6-50 mg Tablet] 1 each PO DAILY PRN #30 tablet PRN Reason: Constipation No Action Aspirin 162 mg PO DAILY Sucralfate [Carafate] 1 gm PO TID Escitalopram [Lexapro] 10 mg PO QAM Clopidogrel [Plavix] 75 mg PO DAILY Nitroglycerin Sl Tabs [Nitrostat] 0.4 mg SUBLINGUAL Q5M PRN PRN Reason: Chest Pain Atorvastatin [Lipitor] 40 mg PO HS Isosorbide Mononitrate ER [Imdur] 30 mg PO QAM Calcium Carbonate [Calcium] 600 mg PO BID hydroCHLOROthiazide [Hydrodiuril] 25 mg PO QAM lisinopriL [Zestril] 20 mg PO QAM atenoloL [Tenormin] 12.5 mg PO HS Discharge Medication List Aspirin 162 mg PO DAILY 02/11/14 [History] Clopidogrel [Plavix] 75 mg PO DAILY 02/11/14 [History] Escitalopram [Lexapro] 10 mg PO QAM 02/11/14 [History] Sucralfate [Carafate] 1 gm PO TID 02/11/14 [History] Nitroglycerin Sl Tabs [Nitrostat] 0.4 mg SUBLINGUAL Q5M PRN 09/02/15 [History] Atorvastatin [Lipitor] 40 mg PO HS 05/04/16 [History] Isosorbide Mononitrate ER [Imdur] 30 mg PO QAM 05/04/16 [History] lisinopriL [Zestril] 20 mg PO QAM 05/16/21 [History] Calcium Carbonate [Calcium] 600 mg PO BID 03/09/22 [History] atenoloL [Tenormin] 12.5 mg PO HS 03/09/22 [History] hydroCHLOROthiazide [Hydrodiuril] 25 mg PO QAM 03/09/22 [History] HYDROcodone/APAP 5-325MG [Lancaster 5-325] 1 - 2 tab PO Q6HR PRN #56 tab 05/16/22 [Rx] Sennosides/Docusate Sodium [Senna-S 8.6-50 mg Tablet] 1 each PO DAILY PRN #30 tablet 05/16/22 [Rx] Follow up Appointment(s)/Referral(s): [facility], [NON-STAFF] - 1-2 Days ([facility] will call to schedule your in home physical therapy and nursing visits. ) [facility] [NON-STAFF] - As Needed (*Please call [facility] once home to arrange delivery of the Continuous Passive Motion (CPM) machine. ) Zach Nice, PAC [PHYSICIAN TECHNICAL AID] - 2 Weeks Patient Instructions/Handouts: Knee Replacement (DC) Activity/Diet/Wound Care/Special Instructions: Orthopedic Discharge Instructions: 1. Wound care and infection precautions, keep incision dry and covered while showering, no lotions, creams, moisturizers. No soaking, pools, hot tubs. Do not scrub over incision. 2. Weight-bear as tolerated with walker / cane until follow-up. 3. Ice and elevate when necessary. Do not exceed 20 minutes per hour with ice pack. 4. Utilize compression sleeve until seen at first follow up appointment. 5. Pain meds and anticoagulants per prescription. 6. Pain medication has potential to cause constipation. Increase oral fluid and fiber intake. Contact primary care provider if you have not had a bowel movement within 48 hours after discharge. 7. No anti-inflammatory medication until discussed at first post operative visit, this including Motrin, Aleve, Mobic, Diclofenac 8. Follow up in office at 2 weeks postop with Stefan Nice PA-C / Eric Abebe PA-C 9. Follow up with your primary care doctor 7-10 days after discharge. 10. Contact [facility] with any questions, . Discharge Disposition: HOME WITH HOME HEALTH SERVICES
[2022-05-16 13:34] VITALS: BP 118/70; PULSE 68; TEMP 97.8
--- NOTE | 2022-05-16 15:51 | P.PN ---
Subjective Progress Note Date: 05/16/22 Hospital course: Patient is a very pleasant 72-year-old female with a past medical history of hypertension, hyperlipidemia, and coronary artery disease. She is currently admitted under orthopedic surgery team status post an elective right knee replacement. We have been consulted for medical management throughout her hospitalization. Physical exam: Patient was seen and fully evaluated at bedside this morning. She is postoperative day 1 and doing well. Morning labs reviewed and stable with a hemoglobin of 10.6. Patient has been ambulating in room with walker and reports controlled postoperative pain. Patient has been urinating without difficulties and denies having any postoperative nausea or vomiting. Vital signs reviewed and stable. General: Nontoxic, no distress and appears stated age. Derm: Skin warm and dry, normal coloration for ethnicity. Head: Atraumatic, normocephalic and symmetric. Eyes: EOMs intact, no lid lag, and anicteric sclera Mouth: no lip lesions, mucus membranes moist Cardiovascular: regular rate and rhythm with normal S1S2, no murmur, positive posterior tibial pulses bilaterally, and cap refill < 2 seconds. Lungs: Respirations even, regular, and unlabored on room air. Lungs CTA bilaterally, no rhonchi, no rales, no wheezing, and no accessory muscle usage. Abdominal: soft, nontender to palpation, no guarding, no appreciable orga nomegaly Ext: ROM intact. No gross muscle atrophy, no edema, no contractures Neuro: Speech clear, face symmetrical and CN II-XII grossly intact with no noted focal neuro deficits Psych: Alert and oriented to person, place, time, and situation. Appropriate and pleasant affect. Assessment and Plan of Care: Status post right total knee arthroplasty -Postop day 1 -Management per primary admitting orthopedic surgery team including pain management, DVT prophylaxis, weightbearing, and PT/OT. Hypertension -Monitor vital signs and continue daily medication regimen with isosorbide mononitrate, hydrochlorothiazide, lisinopril, and atenolol. Hyperlipidemia -Continue daily medication regimen with atorvastatin. Coronary artery disease -Continue cardiac medication regimen with aspirin, Plavix, atorvastatin, isosorbide mononitrate, hydrochlorothiazide, lisinopril, and atenolol. Thank you for allowing us to participate in the care of this pleasant patient. Do not hesitate to contact us with questions. Someone can be reached from the [facility] hospitalist group all hours of the day at [phone] or via perfect serve. Objective - Vital Signs Vital signs: Vital Signs Temp 97.6 F 05/16/22 02:00 Pulse 56 L 05/16/22 02:00 Resp 16 05/16/22 02:00 BP 112/64 05/16/22 02:00 Pulse Ox 92 L 05/16/22 02:00 FiO2 Intake & Output 05/15/22 05/16/22 05/16/22 18:59 06:59 18:59 Intake Total 1501 Output Total 50 Balance 1451 Weight 73.5 kg 73.5 kg Intake: IV 1501 Output: Estimated Blood Loss 50 Other: Voiding Method Toilet # Voids 2 - Labs CBC & Chem 7: 05/16/22 07:07
[2022-05-16] MEDS ORDERED: atenoloL 25 MG TAB PO SCH (21:00)
[2022-05-16] MEDS ORDERED: ATORVASTATIN 40 MG TAB PO SCH (21:00)
== END 2022-05-16 14:00 | disposition home health service (06) ==
LOC: OR 12:53 → 4SSUR 17:17 → OR 05-16 14:00
PROVIDERS: ATTEND Orthopaedic Surgery
DX: M17.11 Unilateral primary osteoarthritis, right knee (principal); G89.18 Other acute postprocedural pain; M25.561 Pain in right knee; M25.461 Effusion, right knee; I10 Essential (primary) hypertension; E78.5 Hyperlipidemia, unspecified; Z98.51 Tubal ligation status; Z90.89 Acquired absence of other organs; Z95.1 Presence of aortocoronary bypass graft; Z98.890 Other specified postprocedural states; Z91.048 Other nonmedicinal substance allergy status; Z79.82 Long term (current) use of aspirin
CPT/HCPCS: 27447; 97110; 97161; 64999; 64448; 76942; 85025; 73560; C1776; C1713 ×2; J2250; J1100; J0690 ×3; J2405; J1170; J2795; 88300

== ENCOUNTER → 2023-04-03 | Outpatient (CLI) | payer MEDICARE ==
--- NOTE | 2023-04-03 18:38 | BD ---
EXAMINATION TYPE: Axial Bone Density DATE OF EXAM: 04/03/2023 CLINICAL HISTORY: 72 years old Female. ICD-10 CODE: Z12.31 SCRMAM,Z78.0 Height: 61.5" Weight: 151.6lbs FRAX RISK QUESTIONS: Alcohol (3 or more units per day): No Family History (Parent hip fracture): No Glucocorticoids (More than 3mos): No (Ex: prednisone, prednisolone, methylprednisolone, dexamethasone, and hydrocortisone). History of Fracture in Adulthood: Yes, bilateral ribs Secondary Osteoporosis: 1. Type 1 Diabetes: No 2. Hyperthyroidism: No 3. Menopause before 45: No 4. Malnutrition: No 5. Chronic liver disease: No Rheumatoid Arthritis: No Current Tobacco Use: No RISK FACTORS HISTORY OF: Hip Fracture (Right/Left): No Spine Fracture: No History of Wrist Fracture: No Surgery to Spine/Hip(right/left)/Wrist (right/left): No Family History of Osteoporosis: No Active: Yes Diet low in dairy products/other sources of calcium: No Postmenopausal woman: Yes Take estrogen and/or progesterone medications: Yes How long: Previously for 3 years after menopause Lost more than 2 inches in height since high school: No Frequent falls: No Poor Health: No Hyperparathyroidism: No Adrenal Insufficiency: No MEDICATIONS: Prednisone or other steroids: No Thyroid Medications: No Osteoporosis Medications: No Additional Medications: blood pressure medication, cholesterol medication, calcium, vitamin D, multiv itamin, heart medication, reflux medication Additional History: Hx skin cancer EXAM MEASUREMENTS: Bone mineral densitometry was performed using the [email or web address] System. Bone mineral density as measured about the Lumbar spine is: ----- L1-L4(G/cm2): 1.226 T Score Values are as follows: ----- L1: -1.1 ----- L2: 0.3 ----- L3: 1.5 ----- L4: 0.7 ----- L1-L4: 0.4 Z Score Values are as follows: ----- L1: 0.5 ----- L2: 1.9 ----- L3: 3.1 ----- L4: 2.3 ----- L1-L4: 2.0 Baseline @[facility] Bone mineral density about the R hip (g/cm2): 0.764 Bone mineral density about the L hip (g/cm2): 0.856 T Score values are as follows: -----R Neck: -2.0 -----L Neck: -1.9 -----R Total: -1.9 -----L Total: -1.2 Z Score values are as follows: -----R Neck: -0.2 -----L Neck: 0.0 -----R Total: -0.3 -----L Total: 0.4 Baseline @[facility] FRAX%s: The graph provided illustrates a 13.0% chance for a major osteoporotic fx and a 3.3% chance f or the hips probability for fx in 10 years time. IMPRESSION: Osteopenia (T Score between -2.5 and -1). There is slightly increased risk of fracture and the patient may be considered for treatment. Re-Screen 2-5 years. NOTE: T-SCORE=SD OF THE YOUNG ADULT MEAN.
--- NOTE | 2023-04-04 07:25 | MM ---
Reason for Exam: Screening (asymptomatic). Last mammogram was performed 1 year(s) and 5 month(s) ago. Patient History: Menarche at age 13. First Full-Term at age 30. Late child-bearing (after 30). Postmenopausal. Risk Values: Leti 5 year model risk: 2.2%. NCI Lifetime model risk: 5.1%. Prior Study Comparison: 12/04/2018 Bilateral Screening Mammogram, [facility]. 04/08/2020 Bilateral Screening Mammogram, [facility]. 11/23/2021 Bilateral Screening Mammogram, [facility]. Tissue Density: There are scattered fibroglandular densities. Findings: Analyzed By CAD. There is no suspicious group of microcalcifications or new suspicious mass in either breast. Stable focal asymmetries within both breasts. Benign-appearing round calcifications within both breasts. Overall Assessment: Benign, BI-RAD 2 Management: Screening Mammogram of both breasts in 1 year. A clinical breast exam by your physician is recommended on an annual basis and results should be correlated with mammographic findings. Note on Leti scores and lifetime risk: 1. A Leti score greater than 3% is considered moderate risk. If this is the case, consider specialist referral to assess eligibility for a risk reducing agent. If overall lifetime risk for the development of breast cancer is 20% or higher, the patient may qualify for future screening with alternating mammogram and breast MRI. Electronically signed and approved by: Josh Felder D.O.
== END | disposition home or self-care (01) ==
LOC: RADBDWWP 11:23
PROVIDERS: ATTEND Family Medicine
DX: Z12.31 Encounter for screening mammogram for malignant neoplasm of breast (principal); M85.89 Other specified disorders of bone density and structure, multiple sites; Z78.0 Asymptomatic menopausal state
CPT/HCPCS: 77063; 77067; 77080

== ENCOUNTER → 2023-12-07 | Outpatient (CLI) | payer MEDICARE ==
[2023-12-07 15:48] LABS: HCT 40.3 % (37.2-46.3); HGB 13.5 g/dL (12.0-15.0); MCH 32.7 pg (27.0-32.0); MCHC 33.5 g/dL (32.0-37.0); MCV 97.6 FL (80.0-97.0); Mean Platelet Volume 10.2 FL (9.5-12.2); NRBC Per 100 WBC 0 X 10*3/uL (0.00-0.01); Platelet Count 228 X 10*3/uL (140-440); RBC 4.13 X 10*6/uL (4.10-5.20); RDW 12.1 % (11.5-14.5); WBC 5.89 X 10*3/uL (4.50-10.00)
[2023-12-07 15:51] LABS: Blood Urea Nitrogen 22.5 mg/dL (9.0-27.0); Chloride 101 mmol/L (96-109); Potassium 4.3 mmol/L (3.5-5.5); Sodium 137 mmol/L (135-145)
== END | disposition home or self-care (01) ==
LOC: LABPAT 10:02
PROVIDERS: ATTEND Internal Medicine Interventional Cardiology
DX: Z01.812 Encounter for preprocedural laboratory examination (principal); R94.39 Abnormal result of other cardiovascular function study
CPT/HCPCS: 36415; 80051; 82565; 84520; 85027

== ENCOUNTER 2023-12-13 06:58 | Day surgery (SDC) | payer MEDICARE ==
[~2023-12-13 06:58] MED LIST changes: -ACETAMINOPHEN TAB 500 MG TAB PO PRN; +ALPRAZolam 0.25 MG TAB PO PRN; +ALPRAZolam 0.5 MG TAB PO PRN; -DEXAMETHASONE SOD PHOSPHATE 4 MG/ML 1 ML VIAL IV ONE; +HEPARIN SODIUM,PORCINE (1 ML) 2,500 UNIT in SODIUM CHLORIDE 0.9% 250 ML IRRIGATION PRN; +HEPARIN SODIUM,PORCINE 10,000 UNIT in SODIUM CHLORIDE 0.9% 1,000 ML IRRIGATION PRN; -HYDROmorphone 0.5 MG/0.5 ML SYRINGE IVP PRN; -LACTATED RINGERS 1,000 ML IV SCH; -MELOXICAM 7.5 MG TAB PO PRN; +NITROGLYCERIN SL TABS 0.4 MG TAB SUBLINGUAL PRN; -ONDANSETRON 4 MG/2 ML VIAL IVP ONE; -TRANEXAMIC ACID IN NACL,ISO-OS 1,000 MG in SALINE 1 100ML.BAG IVPB PRN
[2023-12-13] MEDS: SODIUM CHLORIDE 0.9% 1,000 ML in EMPTY BAG 1 BAG IV ONE (07:32)
[2023-12-13] MEDS ORDERED: VERAPAMIL 2.5 MG/ML 2 ML AMP ONE (09:08)
[2023-12-13] MEDS ORDERED: fentaNYL (PF) 50 MCG/ML 2 ML AMP ONE (09:08)
[2023-12-13] MEDS ORDERED: LIDOCAINE 1% INJ 10MG/ML (20 ML MDV) ONE (09:08)
[2023-12-13] MEDS ORDERED: HEPARIN SODIUM 1,000 UN/ML (10ML VL) ONE (09:08)
[2023-12-13] MEDS: LIDOCAINE 1% INJ 10MG/ML (20 ML MDV) SQ ONE (09:38)
[2023-12-13] MEDS: MIDAZOLAM 2 MG/2 ML VIAL IVP ONE ×2 (09:38→09:46)
[2023-12-13] MEDS: HEPARIN SODIUM 1,000 UN/ML (10ML VL) IVP ONE (10:05)
[2023-12-13] MEDS ORDERED: niCARdipine 25 MG/10 ML VIAL ONE (10:40)
[2023-12-13] MEDS: niCARdipine Syringe (1,000 mcg/10 mL) INTRACORON ONE (10:42)
[2023-12-13] MEDS ORDERED: CLOPIDOGREL 75 MG TAB ONE (10:52)
[2023-12-13] MEDS: CLOPIDOGREL 75 MG TAB PO ONE (10:54)
[2023-12-13] MEDS: IOPAMIDOL-370 100ML BTL INJ ONE (10:55)
[2023-12-13] MEDS ORDERED: ZOLPIDEM 5 MG TAB PO PRN (11:16)
[2023-12-13] MEDS ORDERED: MAG HYDROX/AL HYDROX/SIMETH 30 ML CUP PO PRN (11:16)
[2023-12-13] MEDS ORDERED: RX INFO: IV CONTRAST WAS GIVEN 1 EACH MISC MISCELLANE PRN (11:16)
[2023-12-13] MEDS ORDERED: ATROPINE SULFATE 0.1 MG/ML 10ML SYRINGE IV PRN (11:16)
--- NOTE | 2023-12-13 11:48 | CC ---
CARDIAC CATHETERIZATION REPORT PROCEDURES PERFORMED: 1. Left heart catheterization and coronary angiography and selective injection of bypass grafts. 2. Percutaneous transluminal coronary angioplasty of posterior left ventricular branch of dominant right coronary artery. 3. Percutaneous transluminal coronary angioplasty and stenting of distal right coronary artery into the posterior descending artery branch with a drug-eluting stent. PERFORMED BY: Dr. Sapphire Munoz. ANESTHESIA: Moderate conscious sedation time was 74 minutes. The patient was administered Versed. Oxygen saturation, hemodynamics, and EKG were monitored closely. CLINICAL INFORMATION: Ms. Christina Pemberton is a 73-year-old lady with a known history of CAD, prior aortocoronary bypass surgery that was performed in 2009 and then she had multiple cardiac caths. The last cardiac cath was in 2016. At that time, the 3 bypasses were open, which include LÓPEZ to LAD, vein graft to the diagonal, and vein graft to the obtuse marginal branch of circumflex. [place] RCA that was never grafted, had diffuse disease, more so in the distal aspect. She did well on medical therapy, but a recent stress test had positive symptoms for angina with moderate effort and recent stress test revealed ischemia in the RCA distribution. She was advised cardiac cath after due discussion regarding risks, benefits, and options. PROCEDURE NOTE: Under local anesthesia and strict aseptic precautions, a 6-Swedish introducer was placed in the right femoral artery. I used a standard left Yolanda catheter for selective coronary injection of the left system. I used a Galina catheter for the LÓPEZ injection. I used a AR2 catheter for the [place] RCA and the 2 vein grafts. Subsequently, a pigtail catheter was used to check LV pressures. LV-gram was not performed. I then performed intervention of the distal RCA. Following the intervention, the sheath was taken out and Angio-Seal device used to secure hemostasis and the patient was sent to the room in stable condition. She received a total of 6000 units of heparin. ACT initially was about 244, subsequently was 330. The patient also received 375 mg of Plavix and she will be on aspirin and Plavix without interruption for 1 year. CARDIAC CATHETERIZATION FINDINGS: The right coronary artery: Dominant vessel, never grafted, has mild diffuse disease about 30% to 40% narrowing in the proximal portion. Distally, the vessel has a 95% stenosis just before bifurcation with calcification thrombus and sluggish flow in the PLV distally, but decent flow in the PDA, which is a larger of the 2 branches. There is another acute marginal that comes off before bifurcation, which is also good caliber and distribution and then supplies the PDA territory. The PLV therefore has a distal diffuse stenosis with probably some thrombus and the distal RCA just before bifurcation or at the bifurcation has a calcification thrombus and 95% stenosis. Left main coronary artery: This is totally occluded without much antegrade flow seen as a stump. Left internal mammary artery graft to LAD: This graft is widely patent with very good flow and the LÓPEZ is free of significant disease. Anastomotic site is free of significant disease and the LAD and also the small diagonal branches opacified has diffuse distal disease, but runs all the way to the apex. Saphenous vein graft to the major diagonal branch: This graft is widely patent with good flow. No significant disease in the diagonal branch. The vein graft to the diagonal is therefore widely patent with good flow. Saphenous vein graft to the obtuse marginal branch: This graft is widely patent with good flow, but there is some diffuse disease in the branches of the obtuse marginal and it goes back and fills the entire circumflex vessel. There is some diffuse disease in the [place] circumflex branches, but the graft itself is widely patent with good flow. Left ventriculogram was not performed. FINAL IMPRESSION: This patient has normal filling pressures of 10 mmHg or less, and no gradient across aortic valve. She has a right-dominant system with a distal RCA of about 90% to 95% with thrombus and calcification, mild diffuse disease throughout the RCA which is a dominant vessel. Left main is totally occluded. Vein graft to the diagonal and vein graft to the obtuse marginal are widely patent. RECOMMENDATIONS: I recommended PCI of the distal RCA, which had some thrombus and calcification and proceeded to perform this in the same setting. PCI PROCEDURE DETAILS: I used an Amplatz left 0.75 guide catheter of 6-Swedish caliber and a run-through wire. I could leave the wire in the PLV branch. By the time I injected, the vessel was totally occluded at the site of 95% stenosis without any flow in the PLV and some sluggish flow in the PDA. I was able to, however, wire into the PDA. This vessel occlusion occurred even before I placed a wire. I then tried to advance the wire into the PLV, but it was quite difficult. I used a long run-through wire with a 90 degree super cross. With this combination I was able to wire it after some effort. I went ahead and dilated the distal RCA and PDA with a 2.5 caliber NC Trek balloon. I then turned my attention to the PLV branch. The ostium was dilated with a 2.5 NC Trek balloon and the proximal and midportion of the PLV, I used a 2.25 caliber 12 mm long NC Trek balloon. There was modest flow, but distally the PLV is also occluded, appears to have some chronic occlusion. However, the flow was restored in the PLV branch. I then deployed a 3.0 caliber 12 mm long Xience stent into the distal RCA extending into the PDA branch with excellent angiographic result. Because of significant thrombus burden, I did feel I should advance another IVUS catheter and I therefore checked the ACT, which was 330 or in that range. The sheath was taken out and Angio-Seal device used to secure hemostasis. Excellent angiographic result was achieved without significant complication. Flow in the PLV was decent at the end of the procedure. The results were discussed with the patient and son. I expect she will be discharged tomorrow if she remains stable. MMODL / IJN: [id number] /
[2023-12-13] MEDS: ATORVASTATIN 80 MG TAB PO ONE (13:24)
[2023-12-13] MEDS: ASPIRIN 325 MG TAB PO ONE (13:24)
[2023-12-13] MEDS: SODIUM CHLORIDE 0.9% 1,000 ML in EMPTY BAG 1 BAG IV SCH (14:06)
[2023-12-13] MEDS: ATORVASTATIN 80 MG TAB PO SCH (20:37)
[2023-12-14 06:21] LABS: Basophils % (A) 1 %; Eosinophils # (A) 0.1 k/uL (0-0.7); Eosinophils % (A) 1 %; HCT 36.4 % (34.0-46.0); HGB 12.3 gm/dL (11.4-16.0); Lymphocytes # (A) 1.1 k/uL (1.0-4.8); Lymphocytes % (A) 18 %; MCH 33.2 pg (25.0-35.0); MCHC 33.9 g/dL (31.0-37.0); MCV 97.9 fL (80.0-100.0); Mean Platelet Volume 7.7; Monocytes # (A) 0.4 k/uL (0-1.0); Monocytes % (A) 6 %; Neutrophils # (A) 4.4 k/uL (1.3-7.7); Neutrophils % (A) 72 %; Platelet Count 179 k/uL (150-450); RBC 3.71 m/uL (3.80-5.40); RDW 12.1 % (11.5-15.5); WBC 6.1 k/uL (3.8-10.6)
[2023-12-14 06:29] LABS: African American GFR (CKD) 64 (>60 ml/min/1.73 sqM); Anion Gap 4 mmol/L; Blood Urea Nitrogen 21 mg/dL (7-17); Calcium 9.6 mg/dL (8.4-10.2); Carbon Dioxide 27 mmol/L (22-30); Chloride 106 mmol/L (98-107); Glucose 96 mg/dL (74-99); Non-African American GFR(CKD) 56 (>60 ml/min/1.73 sqM); Potassium 3.9 mmol/L (3.5-5.1); Sodium 137 mmol/L (137-145)
[2023-12-14 07:59] VITALS: BP 122/64; PULSE 56; RESP 18; TEMP 98.1
[2023-12-14] MEDS: ASPIRIN 81 MG PO SCH (09:17)
[2023-12-14] MEDS: CLOPIDOGREL 75 MG TAB PO SCH (09:17)
--- NOTE | 2023-12-14 11:19 | P.DS ---
Providers Attending physician: Jasson Munoz Consults: 12/13/23 11:16 Consult Physician Routine Consulting Provider: [facility] Consult Reason/Comments: Post Interventional Patient Do you want consulting provider notified?: Already Contacted Primary care physician: [facility] Course: DISCHARGE DIAGNOSES: 1. CAD with unstable angina positive stress test Benign hypertension History of previous bypass surgery Hypercholesterolemia PROCEDURES: 1. left heart catheterization, selective injection of bypass grafts, LÓPEZ injection, PTCA and stenting of distal RCA/PDA branch with PTCA of the PLV branch 2 HISTORY OF PRESENTATION: 0 this lady was brought into the hospital mainly because of an abnormal stress test with ischemia in the RCA distribution based on the stress test. She has history of CAD prior GA bypass surgery and PCI. Coronary angiogram revealed that her [place] left system was totally occluded with the left main and LÓPEZ to LAD was patent, vein graft to the diagonal and vein graft to the obtuse marginal was patent. RCA was never grafted and there was a distal lesion of 80 to 90% with thrombus and also the PLV was smaller with some chronic lesion distally. I performed intervention of this vessel once I passed the wire of the thrombus went into the PLV and the vessel was totally occluded this was opened with the PTCA after wiring both PDA and PLV. Stent was deployed into the distal RCA extending into the PDA branch. Excellent angiographic result was achieved patient was asymptomatic this morning she is doing well the right femoral cath site is clean and dry with a good pulse. Her labs and EKG are unremarkable. I will have her ambulate the hallways and then she can be discharged on aspirin and Plavix without interruption for 1 year. I will see her in the office on the at 11:30 AM. Discharge instructions regarding activity diet and medications were given. Same home medications plus increasing Lipitor from 40 to 80 mg daily 3 Plan - Discharge Summary Discharge Rx Participant: Yes New Discharge Prescriptions: No Action Aspirin 162 mg PO DAILY Sucralfate [Carafate] 1 gm PO TID Escitalopram [Lexapro] 10 mg PO QAM Clopidogrel [Plavix] 75 mg PO DAILY Nitroglycerin Sl Tabs [Nitrostat] 0.4 mg SUBLINGUAL Q5M PRN PRN Reason: Chest Pain Atorvastatin [Lipitor] 40 mg PO HS Isosorbide Mononitrate ER [Imdur] 30 mg PO QAM Calcium Carbonate [Calcium] 600 mg PO BID hydroCHLOROthiazide [Hydrodiuril] 25 mg PO QAM Diclofenac Sodium [Voltaren Arthritis Pain 1% Gel] 2 gm TOPICAL DIRECTED PRN PRN Reason: Pain lisinopriL [Zestril] 20 mg PO QAM atenoloL [Tenormin] 12.5 mg PO HS Cider Vinegar [Apple Cider Vinegar] 2 tab PO DAILY Discharge Medication List Aspirin 162 mg PO DAILY 02/11/14 [History] Clopidogrel [Plavix] 75 mg PO DAILY 02/11/14 [History] Escitalopram [Lexapro] 10 mg PO QAM 02/11/14 [History] Sucralfate [Carafate] 1 gm PO TID 02/11/14 [History] Nitroglycerin Sl Tabs [Nitrostat] 0.4 mg SUBLINGUAL Q5M PRN 09/02/15 [History] Atorvastatin [Lipitor] 40 mg PO HS 05/04/16 [History] Isosorbide Mononitrate ER [Imdur] 30 mg PO QAM 05/04/16 [History] lisinopriL [Zestril] 20 mg PO QAM 05/16/21 [History] Calcium Carbonate [Calcium] 600 mg PO BID 03/09/22 [History] atenoloL [Tenormin] 12.5 mg PO HS 03/09/22 [History] hydroCHLOROthiazide [Hydrodiuril] 25 mg PO QAM 03/09/22 [History] Cider Vinegar [Apple Cider Vinegar] 2 tab PO DAILY 12/12/23 [History] Diclofenac Sodium [Voltaren Arthritis Pain 1% Gel] 2 gm TOPICAL DIRECTED PRN 12/12/23 [History] Follow up Appointment(s)/Referral(s): Jasson Munoz MD [STAFF PHYSICIAN] - 12/20/23 11:30 am (FOLLOW UP APPT ON 12/20/23 AT 11:30) Patient Instructions/Handouts: Moderate Sedation (DC), After Radial Heart Catheterization (GEN) Activity/Diet/Wound Care/Special Instructions: *NO LIFTING, PUSHING, OR PULLING ANYTHING OVER 5 POUNDS FOR 5 DAYS *NO DRIVING FOR 3 DAYS *YOU CAN REMOVE YOUR DRESSING TOMORROW BUT DO NOT SUBMERSE YOUR PUNCTURE SITE IN WATER FOR A FEW DAYS TO PREVENT INFECTION - SO NO TUB BATHS, POOLS, HOT TUBS, DISHES...ETC *ANY SIGNS OF BLEEDING (HARDNESS, SWELLING, OR EXCESSIVE BRUISING) HOLD DIRECT PRESSURE ON YOUR PUNCTURE SITE AND COME TO THE NEAREST EMERGENCY ROOM TO GET YOUR PUNCTURE SITE LOOKED AT - DO NOT DRIVE YOURSELF! EITHER CALL EMS OR HAVE SOMEONE DRIVE YOU! Increase Lipitor to 80 mg daily !!
[2023-12-14 11:33] VITALS: BMI 28.3
== END 2023-12-14 11:10 | disposition home or self-care (01) ==
LOC: CATHCVL 06:58 → 6NMEDSUR 10:54 → CATHCVL 12-14 11:10
PROVIDERS: ATTEND Internal Medicine Interventional Cardiology
DX: I25.10 Atherosclerotic heart disease of native coronary artery without angina pectoris (principal); I10 Essential (primary) hypertension; E78.2 Mixed hyperlipidemia; G47.33 Obstructive sleep apnea (adult) (pediatric); Z95.1 Presence of aortocoronary bypass graft; Z79.899 Other long term (current) drug therapy
CPT/HCPCS: 93458; 92921; 80048; 85025; C9600; C1760; C1769 ×5; C1887 ×2; C1894 ×2; C1874; C1725 ×2; J2250; J2001; J1644; Q9967

== ENCOUNTER → 2024-02-20 | Outpatient (CLI) | payer MEDICARE ==
[2024-02-20 09:30] LABS: INR 0.9 (<1.2); Partial Thromboplastin Time 23.5 sec (22.0-30.0); Prothrombin Time 10.1 sec (10.0-12.5)
[2024-02-20 15:13] LABS: Appearance,Urine Clear (Clear); Bilirubin,Urine Negative (Negative); Blood,Urine Negative (Negative); Color,Urine Yellow (Yellow); Ketones,Urine Trace (Negative); Nitrite,Urine Negative (Negative); PH, Urine 5.5; Specific Gravity,Urine 1.019 (1.001-1.030)
[2024-02-20 15:57] LABS: Bacteria,Urine Trace (None Seen); Calcium Oxalate Crystals,Urine Present (None Seen)
== END | disposition home or self-care (01) ==
LOC: LABWHC1 08:25 → EDSTATUS 08:26
PROVIDERS: ATTEND Family Medicine
DX: Z01.812 Encounter for preprocedural laboratory examination (principal)
CPT/HCPCS: 36415; 81001; 85610; 85730

== ENCOUNTER → 2024-08-20 | Outpatient (CLI) | payer MEDICARE ==
--- NOTE | 2024-08-21 08:13 | MM ---
Reason for Exam: Screening (asymptomatic). Last mammogram was performed 1 year(s) and 4 month(s) ago. Patient History: Menarche at age 13. First Full-Term at age 30. Late child-bearing (after 30). Postmenopausal. Risk Values: Leti 5 year model risk: 2.2%. NCI Lifetime model risk: 4.5%. Prior Study Comparison: 04/08/2020 Bilateral Screening Mammogram, [facility]. 11/23/2021 Bilateral Screening Mammogram, [facility]. 04/03/2023 Bilateral MG 3D screening mammo w/cad, [facility]. Tissue Density: There are scattered areas of fibroglandular density. Findings: Analyzed By CAD. There is no suspicious group of microcalcifications or new suspicious mass in either breast. Overall Assessment: Benign, BI-RAD 2 Management: Screening Mammogram of both breasts in 1 year. . Patient should continue monthly self-breast exams. A clinical breast exam by your physician is recommended on an annual basis. This exam should not preclude additional follow-up of suspicious palpable abnormalities. Note on Leti scores and lifetime risk: 1. A Leti score greater than 3% is considered moderate risk. If this is the case, consider specialist referral to assess eligibility for a risk reducing agent. 2. If overall lifetime risk for the development of breast cancer is 20% or higher, the patient may qualify for future screening with alternating mammogram and breast MRI. [facility], , 08/21/2024 8:11 AM. Electronically signed and approved by: Pavan Mcdaniel M.D. Radiolog[facility]
== END | disposition home or self-care (01) ==
LOC: RADMAMWWP 11:33
PROVIDERS: ATTEND Family Medicine
DX: Z12.31 Encounter for screening mammogram for malignant neoplasm of breast (principal); Z78.0 Asymptomatic menopausal state; R92.323 Mammographic fibroglandular density, bilateral breasts
CPT/HCPCS: 77063; 77067